=== PATIENT | female | born 1990 | race Caucasian/White ===

== ENCOUNTER 2025-07-21 14:17 | Emergency (ER) | payer OTHER, SELFPAY ==
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
[2025-07-21 14:28] VITALS: BP 130/80; PULSE 116; PULSE 120; RESP 18; O2SAT 95; BMI 27.4
[2025-07-21 14:55] LABS: MANUAL DIFF FLAG NO
[2025-07-21 14:56] VITALS: BP 124/74; PULSE 110; O2SAT 99
[2025-07-21 14:59] LABS: Hematocrit 44.2 % (37.0-47.0); Hemoglobin 15.2 g/dl (12.0-16.0); Imm Gran Abs Auto 0.10 X10*3/uL (0.00-0.03); Imm Gran Pct Auto 0.8 % (0.0-0.4); Lymphocytes Absolute Auto 3.2 X10*3/uL (1.2-4.9); Mean Corpuscular HGB Conc 34.4 g/dl (31.0-35.0); Mean Corpuscular Hemoglobin 31.2 pg (27.0-33.0); Mean Corpuscular Volume 90.8 fL (80.0-98.0); NRBC Abs Auto 0.000 X10*3/uL (0.0-0.012); NRBC Pct Auto 0.0 /100WBC (0.0-0.2); Platelet Count 408 X10*3/uL (160-400); Red Blood Count 4.87 X10*6/uL (4.20-5.50); White Blood Count 13.3 X10*3/uL (4.8-10.8)
[2025-07-21 15:11] LABS: INTERNATIONAL NORM RATIO 1.0 (0.9-1.1); Prothrombin Time 10.9 SEC (10.9-12.4)
[2025-07-21 15:14] LABS: Partial Thromboplastin Time 32.1 SEC (26.7-34.1)
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
[2025-07-21 15:54] LABS: Alanine Aminotransferase 20 U/L (0-31); Albumin Level 4.6 g/dL (3.5-5.0); Alkaline Phosphatase 72 U/L (39-117); Anion Gap 14 (12-20); Aspartate Amino Transferase 26 U/L (5-31); Blood Urea Nitrogen 14 mg/dL (9-16); Calcium 9.3 mg/dL (8.4-10.2); Carbon Dioxide 21 mmol/L (22-29); Chloride 110 mmol/L (96-108); Creatinine Clr Calc Pharmacy 91.0; Estimated Glomerular Filt Rate > 60; Potassium 3.4 mmol/L (3.3-5.1); Sodium 142 mmol/L (135-145); Total Protein 7.2 g/dL (6.5-8.0)
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
[2025-07-21 17:44] VITALS: BP 138/94; PULSE 107; RESP 17; O2SAT 96
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
--- OUTSIDE RECORDS SUMMARY | 2025-07-21 18:19 | XMS_ITS | Clinical Summary ---
Author Organization [facility] Address [address] [address] Phone Care Team Providers Care Fha Underwriter Name Role Phone Gemma Perez MD Primary Care Provider Allergies Active Allergy Reactions Criticality Noted Date Comments Vancomycin 07/26/2021 Medications traMADoL (ULTRAM) 50 mg tablet Take 50 mg by mouth every 6 (six) hours as needed for pain (specific location in comments). Active ondansetron (ZOFRAN) 4 MG tablet Take 4 mg by mouth every 8 (eight) hours as needed for nausea. Active clonazePAM (KLONOPIN) 0.5 MG disintegrating tablet Active VITAMIN B COMPLEX ORAL Take by mouth. Activ e Medication-Free Text Adrenal supplement Active Active Problems Problem Noted Date Diagnosed Date Acne 11/14/2021 Herniated lumbar intervertebral disc 11/14/2021 Mixed anxiety depressive disorder 11/14/2021 Cyst of ovary 09/11/2021 Migraine 07/22/2006 Immunizations Immunization Administration Dates Next Due Hepatitis B 07/02/1994,08/06/1993,07/05/1993 INFLUENZA, SPLIT VIRUS, TRIV ALENT W/ PRESERVATIVE IM 10/16/2017 Measles 07/11/1991 Td, unspecified formulation 01/21/2013 Varicella 01/21/2013,07/27/1997 Family History Medical History Relation Comments Cervical cancer Paternal Grandmother Diabetes Unspecified Heart disease Unspecified Hypertension Unspecified Relation Status Comments Paternal Grandmother Unspecified Social History Tobacco Use Types Packs/Day Years Used Date Smoking Tobacco: Never Smokeless Tobacco: Never Alcohol Use Standard Drinks/Week Comments Yes 0 (1 standard drink = 0.6 oz pur e alcohol) socially Education Answer Date Recorded Are you interested in more education? Not on wilma e 01/31/2023 Are you concerned about learning? Not on file 01/31/2023 No 01/31/2023 No 01/31/2023 Digital Access Answer Date Recorded No 03/01/2023 No 03/01/2023 No 03/01/2023 Reliable internet access at home? Not on file 03/01/2023 Device with a working camera? Not on file Comments No Sex and Gender Information Value Date Recorded Sex Assigned at Female 07/26/2021 1:47 PM EDT Legal Sex Female 1:16 PM EDT Gender Identity Female 07/26/2021 1:47 PM EDT Sexual Orientation Straight 07/26/2021 1: 47 PM EDT Last Filed Vital Signs Vital Sign Reading Time Taken Comments Blood Pressure 118/72 09/11/2021 2:04 PM EST Pulse 76 07/26/2021 6:36 PM EDT Temperature 36.8 C (98.2 F) 07/26/2021 1:45 PM EDT Respiratory Rate 20 07/26/2021 6:36 PM EDT Oxygen Saturation 97% 07/26/2021 6:36 PM EDT Inhaled Oxygen Concentration - - Weight 67.5 kg (148 lb 12.8 oz) 09/11/2021 2:04 PM EST Height 158.8 cm (5' 2.5 ) 09/11/2021 2:04 PM EST Body Mass Index 26.78 09/11/2021 2:04 PM EST Plan of Treatment Health Maintenance Due Date Last Done Comments DEPRESSION SCREENING 2002 HEPATITIS C SCREENING 2008 HIV ONE-TIME SCREENING (18-6 5 YEARS) 2008 PAP SMEAR 2011 Adult Td,Tdap Booster 01/21/2023 01/21/2013 INFLUENZA VACCINE (#1) 2025 10/16/2017 COVID-19 VACCINE ( - 2024-2 6 season) 2025 09/07/2021, 12/02/2020, 11/11/2020 SMOKING STATUS SCREENING (On ce After 26 Yrs) Completed 11/14/2021 HEPATITIS A VACCINES Aged Out No long er eligible based on patient's age to complete this topic HIB VACCINES Aged Out No longer eligi ble based on patient's age to complete this topic MENINGOCOCCAL VACCINES (ACWY) Aged Out No longer eligible based on patient's age to complete this topic MENINGOCOCCAL VACCINES (B) Aged Out N o longer eligible based on patient's age to complete this topic PNEUMOCOCCAL VACCINES (0-49 years) Aged Out No longer eligible b ased on patient's age to complete this topic Medical Devices Not on file Insurance [id number] [place], [place] [address] Care Teams Fha Underwriter Relationship Specialty Start Date End Date Gemma Perez MD [address] [place] [id number] PCP - General Family Medicine 07/26/21 Additional Source Comments The information contained in this document represents components of the legal health record. It is not the complete legal health record.[facility]
[2025-07-21] MEDS: iohexoL 350 MG/ML 100 ML INFUS..BTL IV (19:13)
[2025-07-21 20:38] VITALS: BP 128/84; PULSE 97; RESP 14; TEMP 36.5; O2SAT 97
[2025-07-21 20:40] VITALS: BP 128/84; PULSE 97; RESP 14; TEMP 36.5; O2SAT 97
== END 2025-07-21 20:46 ==
PROVIDERS: Emergency Provider Emergency Medicine
DX: S09.90XA Unspecified injury of head, initial encounter (principal); F10.129 Alcohol abuse with intoxication, unspecified; Y90.8 Blood alcohol level of 240 mg/100 ml or more; R51.9 Headache, unspecified; R10.20 Pelvic and perineal pain unspecified side; M54.2 Cervicalgia; V54.5XXA Driver of pick-up truck or van injured in collision with heavy transport vehicle or bus in traffic accident, initial encounter; Y93.9 Activity, unspecified; Y92.410 Unspecified street and highway as the place of occurrence of the external cause; Y99.8 Other external cause status; Z79.899 Other long term (current) drug therapy; Z51.81 Encounter for therapeutic drug level monitoring
CPT/HCPCS: 36415; 70450; 70498; 71250; 72125; 74176; 80053; 80307; 83605; 84702; 85025; 85610; 85730; 99284; 99285; Q9967

== ENCOUNTER → 2025-07-21 15:30 | Outpatient (BNV) | payer OTHER, SELFPAY | PROVIDERS: Emergency Provider Emergency Medicine; Visit Provider Radiology Diagnostic Radiology | DX: Z04.3 Encounter for examination and observation following other accident (principal); F10.129 Alcohol abuse with intoxication, unspecified | CPT/HCPCS: 70450; 70498; 71250; 72125; 74176 ==